=== PATIENT | male | born 1990 | race Two or more races ===

== ENCOUNTER 2016-05-28 12:52 | Emergency (ER) | payer BC ==
[2016-05-28] MEDS ORDERED: IOPAMIDOL 300 (61%) 150 ML VIAL IV ONE (12:53)
[2016-05-28 13:39] LABS: SPECIFIC GRAVITY 1.015 (1.001-1.030); URINE BILIRUBIN NEGATIVE (NEGATIVE); URINE BLOOD 2+ (NEGATIVE); URINE GLUCOSE (UA) NEGATIVE (NEGATIVE); URINE LEUKOCYTE ESTERASE 2+ (NEGATIVE); URINE NITRITE NEGATIVE (NEGATIVE); URINE PROTEIN 1+ (NEGATIVE); URINE UROBILINOGEN NORMAL (0-1 mg/dl)
[2016-05-28 13:45] LABS: URINE APPEARANCE SL CLOUDY; URINE COLOR YELLOW
[2016-05-28 14:09] LABS: URINE EPITHELIAL CELLS 0 /hpf; URINE RBC 0-1 /hpf; URINE WBC 40-50 /hpf
[2016-05-28 14:10] LABS: URINE BACTERIA 1+
[2016-05-28] MEDS ORDERED: ONDANSETRON 4 MG/2ML 2 ML VIAL ONE (15:13)
[2016-05-28] MEDS ORDERED: SODIUM CHLORIDE 0.9% 1,000 ML ONE (15:13)
[2016-05-28] MEDS ORDERED: HYDROMORPHONE HCL 1 MG/ML SYRINGE ONE (15:14)
[2016-05-28 15:36] LABS: ABSOLUTE NEUTROPHIL COUNT 6.1 K/mm3 (1.8-7.7); BASO % 0.1 % (0.2-1.0); EOS # 0.1 (0.0-0.5); EOS % 0.9 % (0.9-2.9); HEMATOCRIT 33.9 % (32.0-52.0); IMM NEUT% 0.3 % (0-1); LYMPH # 1.1 (1.0-4.8); LYMPH % 14.1 % (15-45); MEAN CELL VOLUME 74.8 fl (80.0-94.0); MEAN CORPUSCULAR HEMOGLOBIN 24.3 pg (27.0-31.0); MEAN CORPUSCULAR HGB CONC 32.4 g/dl (33.0-37.0); MEAN PLATELET VOLUME 9.2 fl (7.4-10.4); MONO # 0.5 (0.0-0.8); NEUT % 78.6 % (43-75); PLATELET COUNT 362 K/mm3 (130-400); RED CELL DISTRIBUTION WIDTH 13.2 % (11.5-14.5)
[2016-05-28] MEDS ORDERED: NS 0.9% (MINI-BAG PLUS) 50 ML IV ONE (15:57)
[2016-05-28] MEDS ORDERED: CEFTRIAXONE SODIUM 1 G VIAL ONE (15:57)
[2016-05-28 15:59] LABS: ALB/GLOB RATIO 0.9 (>1.0); ALBUMIN 3.4 gm/dL (3.5-5.7); CALCIUM 8.8 mg/dL (8.6-10.3)
--- NOTE | 2016-05-28 16:24 | CT ---
Exam: CT abdomen and pelvis with contrast COMPARISON: None INDICATION: Lower abdominal mass, pain for 2 months. TECHNIQUE: CT examination of the abdomen and pelvis was obtained following the administration of 125 mm Isovue-300 intravenous contrast. FINDINGS: There is focal significant wall thickening involving the sigmoid colon, which extends for at least 7.6 cm. Wall thickness is circumferential, and measures at least 1.8 cm in single layer thickness. Along the inferior aspect of the wall thickening there is a masslike protuberance which extends into the urinary bladder wall, measuring at least 5.3 x 3.8 x 4.9 cm in diameter. This is associated with asymmetric urinary bladder wall thickening and fat stranding surrounding the urinary bladder and this segment of colon. There is no bowel obstruction. The appendix is normal. There is distal right ureteral obstruction, with mild to moderate right-sided hydronephrosis and a slightly delayed nephrogram on the right compared with the left. Associated lymph nodes are seen in the adjacent mesentery measuring up to 9 mm in short axis diameter. No liver lesion is identified. Spleen is normal in size. There is no adrenal mass. Pancreas is unremarkable, as is the gallbladder. There is a 3 mm subpleural nodule within the left lower lobe which is of uncertain significance, could potentially simply reflect atelectasis. Lung bases otherwise clear. No worrisome lytic or blastic osseous abnormality is identified. IMPRESSION: Masslike wall thickening involving the sigmoid colon, which is extending into the urinary bladder and producing obstruction of the distal right ureter. Findings are highly concerning for locally invasive colon cancer rather than an chronic inflammatory/infectious process although this is also considered in the differential diagnosis. Findings were discussed with Dr. Tijerina at 1613 hours 05/28/2016.
[2016-05-29 14:01] LABS: CHLAMYDIA BD Negative (Negative); N.GONORRHOEAE BD Negative (Negative); SOURCE Urine (())
== END 2016-05-28 21:02 | disposition home or self-care (01) ==
LOC: ED 12:52
DX: R19.09 Other intra-abdominal and pelvic swelling, mass and lump (principal); N13.1 Hydronephrosis with ureteral stricture, not elsewhere classified; N39.0 Urinary tract infection, site not specified
CPT/HCPCS: 83690; 87491; 87591; 85025; 87086; 80053; 81001; 74177; 96375 ×2; 99284; 96374; 96361 ×2; 99285; J1170; J0696; J2405; J7030; Q9967